=== PATIENT | female | born 1930 | race Caucasian/White ===

== ENCOUNTER 2017-12-25 17:49 | Inpatient (IN) | payer MEDICARE, BC ==
[~2017-12-25] VITALS: Ht 170.2 cm; Wt 65.9 kg
--- NOTE | ~2017-12-25 | PN ---
PATIENT:ZAHIDA AMOS MEDICAL RECORD: [id number] LOCATION:[facility] ADMISSION DATE: 12/25/17 PROGRESS NOTE DATE OF SERVICE: 12/28/2017 SUBJECTIVE: No new complaint. OBJECTIVE: The patient has been very pleasant. She had a good family visit yesterday. On exam, mood is euthymic. Affect rather constricted. Speech is somewhat terse. Content of thought is negative for overt psychosis. Sensorium unchanged. ASSESSMENT: No change in diagnosis. PLAN: 1. Continue current medication. 2. Continue supportive therapy. TRANSINT:[id number] Voice Confirmation ID: [id number] DOCUMENT ID: [id number] ANGIE GOLD III, MD at 0948 CC: [id number] DICTATION DATE: 12/28/17 1206 POWERHOUSE MECHANIC SUPERVISOR: 12/28/17 1224 ADM IN [place] [id number] [place] [address]
--- NOTE | ~2017-12-25 | PSY ---
PATIENT NAME:ZAHIDA AMOS MEDICAL RECORD: [id number] : 30 LOCATION:[facility] ADMISSION DATE: 12/25/17 ACCOUNT: [id number] PSYCHIATRIC EVALUATION DATE OF EVALUATION: 12/26/17 IDENTIFYING DATA: This is the first Alf admission for this 87-year-old white female. HISTORY OF PRESENT ILLNESS: This patient was brought to the hospital at the urging of her daughter. The daughter has recently been visiting the patient. The daughter is from [place]. Evidently, the daughter became concerned about the patient's condition, particularly memory problems and agitation. The patient was taken to Dr. Man's office and subsequently sent here. The patient evidently has a previous diagnosis of dementia as she had already been prescribed both Aricept and Namenda. On exam, the patient admits to having "memory problems," but denies that there is anything really wrong with her. She repeatedly states that she does not need to be in a psychiatric unit because "there is something wrong with those other people." The patient repeatedly states that she thinks she is here because her daughter is angry with her for some reason. The patient was reassured that no one is admitted to this unit simply because of family members upset with them, but that in fact the family member indeed is concerned that something might be seriously wrong. The patient rejected this explanation. Beyond this, it is not known if the patient has had previous psychiatric treatment. She does live alone in [place]. Because of concern about the patient's safety, she has been admitted. PAST MEDICAL HISTORY: Significant for hypercholesterolemia, hypertension, coronary artery disease, hypothyroidism. MEDICATION: At the time of admission included Zocor, Aricept, Namenda, lisinopril, Plavix, aspirin, Norvasc, Coreg, Synthroid and Lasix. FAMILY HISTORY: Noncontributory. SOCIAL HISTORY: The patient's in 2000. She had lived near [place], [place] but moved to [place] after her 's . She has a daughter that lives in [place], a son that lives in [place], and another son that lives in [place]. No substance abuse issues reported. ALLERGIES: LISTED PENICILLIN AND CERTAIN TAPE PRODUCTS. MENTAL STATUS: On exam, the patient is anxious and somewhat hyper-alert. Affect is rather brittle. Speech is at times, repetitive and circular. Content of thought is negative for overt psychosis. The patient is oriented to person and place, but not correctly as to time. Remote recall appears to be intact. Intermediate and short-term recall do show some deficits. Concentration is poor. 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 AXIS II: No diagnosis. AXIS III: Hypercholesterolemia, hypertension, coronary artery disease status post stent placement, hypothyroidism. AXIS IV: Moderate. AXIS V: 36. PLAN: 1. The patient is admitted for further medical and psychiatric workup. 2. We will get neuropsychological testing. 3. Daily supportive therapy. TRANSINT:[id number] Voice Confirmation ID: [id number] DOCUMENT ID: [id number] ANGIE GOLD III, MD at 2123 CC: [id number] DICTATION DATE: 12/26/17 1229 RECRUITING OPERATIONS CONSULTANT: 12/26/17 1406 ADM IN [place] [id number] [place] [id number]
--- NOTE | ~2017-12-25 | PN ---
PATIENT:ZAHIDA AMOS MEDICAL RECORD: [id number] LOCATION:[facility] ADMISSION DATE: 12/25/17 PROGRESS NOTE DATE OF SERVICE: 12/27/2017 SUBJECTIVE: No new complaint. OBJECTIVE: The patient has been fairly cooperative. She remains upset at her daughter. Staff has met with daughter and one of the patient's sons. They do plan to have the patient admitted at the [facility] by the end of the week. The patient is tolerating medications well. On exam, mood is for the most part pleasant. Affect is rather shallow. Speech somewhat terse. Content of thought is negative for clear cut psychosis. Sensorium unchanged. ASSESSMENT: No change in diagnosis. PLAN: 1. Continue current medication. 2. Continue supportive therapy. TRANSINT:[id number] Voice Confirmation ID: [id number] DOCUMENT ID: [id number] ANGIE GOLD III, MD at 2048 CC: [id number] DICTATION DATE: 12/27/17 1145 PERSONNEL CLERKS SUPERVISOR: 12/27/17 1310 ADM IN [place] [id number] [place] [address]
--- NOTE | ~2017-12-25 | DS ---
PATIENT:ZAHIDA AMOS :30 MEDICAL RECORD: [id number] DISCHARGE SUMMARY ADMISSION DATE: 12/25/17 DISCHARGE DATE: 12/29/17 DATE OF ADMISSION: 12/25/2017. DATE OF DISCHARGE: 12/29/2017. HISTORY OF PRESENT ILLNESS: First Skilled Nursing admission for this 87-year-old white female. The patient was brought to the hospital by her daughter. The daughter became concerned because over the last several weeks, the patient had been showing severe memory deficits, confusion, and behavior disturbance. The daughter had brought the patient to the daughter's home in [place] for a planned visit of several weeks, but had to bring her back to [place] abruptly because of the patient's deterioration. The patient has been developing dementia for some time. For further details, please see previously dictated history. COURSE IN THE HOSPITAL: The patient was seen in consultation by Dr. Freeman. He noted ongoing problems including old CVA, hypertension, hyperlipidemia, hypothyroidism, gastroesophageal reflux disease, congestive heart failure, history of myocardial infarction, and osteoarthritis. During the hospitalization, the patient was started on perphenazine 2 mg at bedtime for control of her agitation. She was kept on a previous dose of Aricept 5 mg daily. She was kept on other routine medications including Synthroid, vitamin B12, Zocor, Namenda 10 mg daily, Plavix, lisinopril, Norvasc, Coreg, and Lasix. The patient did well over the course of the hospitalization, she remained extremely confused throughout. She had very poor short-term recall, the family elected to have her admitted to the [facility] for ongoing care. She was discharged in stable condition. FINAL DIAGNOSES: AXIS I: Vascular dementia with behavioral disturbance -- improving. AXIS II: No diagnosis. AXIS III: Coronary artery disease, hypothyroidism, hypertension, and hyperlipidemia. AXIS IV: Moderate. AXIS V: 44. PLAN: 1. The patient is discharged on current medication. 2. Diet and activities as tolerated. 3. Follow up through primary care physician. TRANSINT:[id number] Voice Confirmation ID: [id number] DOCUMENT ID: [id number] DISCHARGE SUMMARY REPORT [id number] ZAHIDA AMOS III, ANGIE Lee MD at 0535 CC: [id number] DICTATION DATE: 12/29/17 1116 GATE AGENT: 12/29/17 1507 DIS IN 12/29/17 [address] [place] [address]
[2017-12-25] MEDS ORDERED: ZOCOR20 MG PO (20:13)
[2017-12-25] MEDS ORDERED: LEVOTHYROXINE150 MCG PO (20:13)
[2017-12-25] MEDS ORDERED: PLAVIX75 MG PO (20:14)
[2017-12-25] MEDS ORDERED: FUROSEMIDE20 MG PO (20:16)
[2017-12-25] MEDS ORDERED: COREG6.25 MG PO (20:18)
[2017-12-25] MEDS ORDERED: NAMENDA10 MG PO (20:18)
[2017-12-25] MEDS ORDERED: BAYER CHEWABLE81 MG PO (20:19)
[2017-12-25] MEDS ORDERED: HALOPERIDOL0.5 MG PO (20:20)
[2017-12-25 21:02] VITALS: BP 190/77
[2017-12-25 22:25] LABS: BASOPHILS 0.8 % (0-2); EOSINOPHILS 4.2 % (0-7); HEMATOCRIT 37.6 % (36.0-48.0); HEMOGLOBIN 12.3 g/dL (12-16); IMMATURE GRANULOCYTES 0.3 % (0-5); LYMPHOCYTES 31.3 % (15-50); MCH 30.4 pg (26.0-34.0); MCHC 32.7 g/dL (31.0-37.0); MCV 93.1 fL (80.0-100.0); MEAN PLATELET VOLUME 10.5 fL (7.4-10.4); NEUTROPHILS 48.4 % (40-80); PLATELET COUNT 180 10x3/uL (130-400); RBC 4.04 10x6/uL (4.00-5.40); RDW 13.3 % (11.5-14.5); WBC 3.8 10x3/uL (4.8-10.8)
[2017-12-25 22:52] LABS: ALBUMIN 3.2 g/dL (3.4-5.0); ANION GAP 12.2 mmol/L (8-16); BILIRUBIN - TOTAL 0.4 mg/dL (0.2-1.3); CARBON DIOXIDE 27.8 mmol/L (21.0-32.0); CHOL - HDL RATIO 3.1 ratio (2.3-4.1); CREATININE - SERUM 1.6 mg/dL (0.6-1.3); LDL-HDL RATIO 1.8 ratio (1.5-3.5); THYROID STIMULATING HORMONE 0.01 uIU/mL (0.36-3.74)
[2017-12-26] MEDS ORDERED: PRINIVIL20 MG PO (01:35)
[2017-12-26] MEDS ORDERED: NORVASC5 MG PO (01:36)
[2017-12-26] MEDS ORDERED: PLAVIX75 MG PO (01:36)
[2017-12-26] MEDS ORDERED: ARICEPT5 MG PO (01:45)
[2017-12-26] MEDS ORDERED: KENALOG 0.1 % 115 GM (01:46)
[2017-12-26 03:44] VITALS: BP 190/77; BMI 22.7
[2017-12-26 13:32] VITALS: BMI 22.7
[2017-12-26 20:25] VITALS: BP 116/64
[2017-12-27 07:31] LABS: FOLATE (FOLIC ACID) - SERUM 15.1 ng/mL (>3.0); RAPID PLASMA REAGIN Non Reactive (Non Reactive)
[2017-12-27 08:22] LABS: VITAMIN D 25 HYDROXY 20.7 ng/mL (30.0-100.0)
[2017-12-27 09:30] VITALS: BP 139/67
[2017-12-27 13:20] VITALS: Ht 170.2 cm; Wt 65.9 kg
[2017-12-27 20:02] VITALS: BP 132/54
[2017-12-28 08:03] VITALS: BP 175/67
[2017-12-28 09:22] LABS: APPEARANCE CLEAR (CLEAR); BACTERIA MODERATE /hpf (NONE SEEN); BILIRUBIN NEGATIVE (NEGATIVE); COLOR YELLOW (YELLOW); EPITHELIAL CELLS 0-5 /hpf (0-5); GLUCOSE NEGATIVE (NEGATIVE); KETONE NEGATIVE (NEGATIVE); MUCUS <1+ /lpf (NONE SEEN); NITRITE NEGATIVE (NEGATIVE); PROTEIN NEGATIVE (NEGATIVE); RED CELLS - URINE RARE /hpf (0-5); UROBILINOGEN NORMAL (NORMAL)
[2017-12-28] MEDS ORDERED: ARICEPT5 MG PO (12:10)
[2017-12-28] MEDS ORDERED: LEVOXYL100 MCG PO (12:11)
[2017-12-28] MEDS ORDERED: PERPHENAZINE2 MG PO (12:11)
[2017-12-28] MEDS ORDERED: VITAMIN D31000 UNI2 PO (12:12)
[2017-12-28] MEDS ORDERED: VITAMIN B-1000 MCG/M IM (12:12)
[2017-12-28 20:17] VITALS: BP 114/56
[2017-12-29 08:12] VITALS: BP 162/87
== END 2017-12-29 13:25 | disposition home or self-care (01) | DRG 57 ==
LOC: D.PSYCH 17:49
PROVIDERS: Psychiatry & Neurology Psychiatry
DX: I69.318 Other symptoms and signs involving cognitive functions following cerebral infarction (principal); F01.51 Vascular dementia, unspecified severity, with behavioral disturbance; I25.10 Atherosclerotic heart disease of native coronary artery without angina pectoris; E03.9 Hypothyroidism, unspecified; E78.5 Hyperlipidemia, unspecified; K21.9 Gastro-esophageal reflux disease without esophagitis; M19.90 Unspecified osteoarthritis, unspecified site; I11.0 Hypertensive heart disease with heart failure; I50.9 Heart failure, unspecified; E53.8 Deficiency of other specified B group vitamins; E55.9 Vitamin D deficiency, unspecified

== ENCOUNTER 2018-08-22 20:52 | Emergency (ER) | payer MEDICARE, BC ==
[~2018-08-22] VITALS: Ht 170.2 cm; Wt 77.3 kg
[~2018-08-22 20:52] MED LIST: ARICEPT5 MG PO; BAYER CHEWABLE81 MG PO; COREG6.25 MG PO; FUROSEMIDE20 MG PO; HALOPERIDOL0.5 MG PO; KENALOG 0.1 % 115 GM; LEVOTHYROXINE150 MCG PO; LEVOXYL100 MCG PO; NAMENDA10 MG PO; NORVASC5 MG PO; PERPHENAZINE2 MG PO; PLAVIX75 MG PO; PRINIVIL20 MG PO; VITAMIN B-1000 MCG/M IM; VITAMIN D31000 UNI2 PO; ZOCOR20 MG PO
[2018-08-22 20:57] VITALS: Ht 170.2 cm; Wt 77.3 kg
[2018-08-22] MEDS ORDERED: ALDACTONE25 MG PO (21:06)
[2018-08-22] MEDS ORDERED: COREG6.25 MG PO (21:06)
[2018-08-22] MEDS ORDERED: DIOVAN40 MG PO (21:07)
[2018-08-22] MEDS ORDERED: BACTRIM DS1 TAB PO (21:07)
[2018-08-22] MEDS ORDERED: DOXYCYCLINE HY100 M2 PO (21:07)
[2018-08-22 21:37] LABS: EOSINOPHILS 6.9 % (0-7); HEMATOCRIT 38.3 % (36.0-48.0); HEMOGLOBIN 12.6 g/dL (12-16); IMMATURE GRANULOCYTES 0.2 % (0-5); MCHC 32.9 g/dL (31.0-37.0); MCV 97.2 fL (80.0-100.0); MEAN PLATELET VOLUME 10.1 fL (7.4-10.4); MONOCYTES 14.3 % (2-11); NEUTROPHILS 33.6 % (40-80); PLATELET COUNT 169 10x3/uL (130-400); RBC 3.94 10x6/uL (4.00-5.40); WBC 4.1 10x3/uL (4.8-10.8)
[2018-08-22 21:40] LABS: APTT 26.6 SECONDS (22.8-39.4); INR 1.06 (0.85-1.17); PROTIME 13.3 SECONDS (11.6-15.0)
[2018-08-22 21:57] LABS: ALBUMIN 3.4 g/dL (3.4-5.0); ALKALINE PHOSPHATASE 72 U/L (46-116); ALT (SGPT) 21 U/L (10-68); BILIRUBIN - TOTAL 0.21 mg/dL (0.2-1.3); CALC OSMOLALITY 292 mosm/kg (275-300); CALCIUM 8.6 mg/dL (8.5-10.1); CHLORIDE - SERUM 106 mmol/L (98-107); CREATININE - SERUM 1.9 mg/dL (0.6-1.3); GLUCOSE 111 mg/dL (74-106); POTASSIUM - SERUM 4.2 mmol/L (3.5-5.1); SODIUM 141 mmol/L (136-145); UREA NITROGEN 43 mg/dL (7-18); eGFR NON AFRICAN AMERICAN 26 mL/min (90-120)
[2018-08-22 21:59] LABS: CKMB 0.8 U/L (0.0-3.6); CREATINE KINASE 55 UL (21-215); TROPONIN-I < 0.017 ng/mL (0.000-0.060)
[2018-08-22 22:54] LABS: APPEARANCE CLEAR (CLEAR); BILIRUBIN NEGATIVE (NEGATIVE); COLOR YELLOW (YELLOW); GLUCOSE NEGATIVE (NEGATIVE); KETONE NEGATIVE (NEGATIVE); NITRITE NEGATIVE (NEGATIVE); PROTEIN NEGATIVE (NEGATIVE); UROBILINOGEN NORMAL (NORMAL)
[2018-08-22 22:55] LABS: BACTERIA FEW /hpf (NONE SEEN); EPITHELIAL CELLS OCC /hpf (0-5); WHITE CELLS - URINE 0-5 /hpf (0-5)
[2018-08-23] MEDS ORDERED: ULTRAM50 MG PO (00:32)
[2018-08-23 00:58] VITALS: BP 143/57
== END 2018-08-23 00:58 | disposition home or self-care (01) ==
LOC: D.ER 20:52
PROVIDERS: Emergency Medicine
DX: R07.9 Chest pain, unspecified (principal); K21.9 Gastro-esophageal reflux disease without esophagitis; S62.356A Nondisplaced fracture of shaft of fifth metacarpal bone, right hand, initial encounter for closed fracture; W23.0XXA Caught, crushed, jammed, or pinched between moving objects, initial encounter; Y93.89 Activity, other specified; Y92.231 Patient bathroom in hospital as the place of occurrence of the external cause; S61.411A Laceration without foreign body of right hand, initial encounter; Z86.73 Personal history of transient ischemic attack (TIA), and cerebral infarction without residual deficits; I10 Essential (primary) hypertension

== ENCOUNTER 2019-03-07 22:30 | Emergency (ER) | payer MEDICARE, BC ==
[~2019-03-07] VITALS: Ht 170.2 cm; Wt 63.6 kg
[~2019-03-07 22:30] MED LIST changes: +ALDACTONE25 MG PO; +BACTRIM DS1 TAB PO; +DIOVAN40 MG PO; +DOXYCYCLINE HY100 M2 PO; +ULTRAM50 MG PO
[2019-03-07 22:35] VITALS: Ht 170.2 cm; Wt 63.6 kg
[2019-03-07] MEDS ORDERED: LEVOXYL150 MCG PO (22:38)
[2019-03-07] MEDS ORDERED: MELATONIN5 M3 (22:39)
[2019-03-07] MEDS ORDERED: DEMADEX10 MG PO (22:39)
[2019-03-07] MEDS ORDERED: ATIVAN1 MG PO (22:41)
[2019-03-07 23:02] LABS: BASOPHILS 0.4 % (0-2); EOSINOPHILS 5.5 % (0-7); HEMATOCRIT 35.6 % (36.0-48.0); HEMOGLOBIN 12.1 g/dL (12-16); IMMATURE GRANULOCYTES 0.2 % (0-5); LYMPHOCYTES 37.9 % (15-50); MCH 31.1 pg (26.0-34.0); MCV 91.5 fL (80.0-100.0); MEAN PLATELET VOLUME 9.9 fL (7.4-10.4); MONOCYTES 15.6 % (2-11); NEUTROPHILS 40.4 % (40-80); PLATELET COUNT 167 10x3/uL (130-400); RBC 3.89 10x6/uL (4.00-5.40); RDW 12.7 % (11.5-14.5); WBC 4.9 10x3/uL (4.8-10.8)
[2019-03-07 23:09] LABS: INR 1.1 (0.85-1.17); PROTIME 13.7 SECONDS (11.6-15.0)
[2019-03-07 23:10] LABS: APTT 25.8 SECONDS (22.8-39.4)
[2019-03-07 23:16] LABS: ALBUMIN 3.4 g/dL (3.4-5.0); ALKALINE PHOSPHATASE 65 U/L (46-116); ALT (SGPT) 11 U/L (10-68); BILIRUBIN - TOTAL 0.28 mg/dL (0.2-1.3); CALC OSMOLALITY 289 mosm/kg (275-300); CARBON DIOXIDE 24.5 mmol/L (21.0-32.0); CHLORIDE - SERUM 106 mmol/L (98-107); CREATININE - SERUM 2.3 mg/dL (0.6-1.3); GLUCOSE 101 mg/dL (74-106); POTASSIUM - SERUM 4.7 mmol/L (3.5-5.1); PROTEIN - SERUM 6.9 g/dL (6.4-8.2); SODIUM 138 mmol/L (136-145); UREA NITROGEN 52 mg/dL (7-18); eGFR NON AFRICAN AMERICAN 21 mL/min (90-120)
[2019-03-07 23:28] LABS: CKMB 0.6 U/L (0.0-3.6); CREATINE KINASE 35 UL (21-215)
[2019-03-07 23:30] LABS: TROPONIN-I < 0.017 ng/mL (0.000-0.060)
[2019-03-08 03:50] VITALS: BP 174/86
== END 2019-03-08 03:50 | disposition home or self-care (01) ==
LOC: D.ER 22:30
PROVIDERS: Emergency Medicine
DX: R07.9 Chest pain, unspecified (principal); R06.00 Dyspnea, unspecified; I10 Essential (primary) hypertension; K21.9 Gastro-esophageal reflux disease without esophagitis; G30.9 Alzheimer's disease, unspecified; F02.80 Dementia in other diseases classified elsewhere, unspecified severity, without behavioral disturbance, psychotic disturbance, mood disturbance, and anxiety